=== PATIENT | female | born 1955 | race Caucasian/White ===

== ENCOUNTER 2022-04-08 09:46 | Outpatient (CLI) | payer MEDICARE | END 2022-04-08 09:47 | disposition home or self-care (01) | LOC: BICMAMMO 09:46 | PROVIDERS: ATTEND Family Medicine | DX: N63.10 Unspecified lump in the right breast, unspecified quadrant (principal); N60.02 Solitary cyst of left breast | CPT/HCPCS: 76642; 77066; G0279 ==

== ENCOUNTER 2023-07-08 07:32 | Day surgery (SDC) | payer MEDICARE ==
[2023-07-07 13:24] VITALS: BMI 18.6
[2023-07-08] MEDS ORDERED: Vancomycin 1 GM/200 ML (FROZEN) BAG ONE (09:48)
[2023-07-08] MEDS ORDERED: LevoFLOXacin D5W 500 mg (100 mL) BAG ONE (09:48)
[2023-07-08 10:23] LABS: #Basophils 0.1 thou/uL (0.0-0.2); #Monocytes 0.5 thou/uL (0.11-0.59); #Neutrophils 5.8 thou/uL (1.40-6.50); %Basophils 0.6 % (0.0-1.0); %Eosinophils 0.1 % (0.0-10.0); %Lymphocytes 19.7 % (21.0-51.0); %Monocytes 6.3 % (0.0-10.0); %Neutrophils 72.9 % (42.0-75.0); Hematocrit 37.1 % (36.0-47.0); Hemoglobin 11.7 g/dL (12.0-16.0); Mean Corpuscular HGB CONC 31.5 g/dL (32.0-36.0); Mean Corpuscular Hemoglobin 29.3 pg (27.0-31.0); Mean Corpuscular Volume 92.8 fl (78.0-98.0); Mean Platelet Volume 8.9 fL (7.4-10.4); Platelet Count 304 10x3/uL (130-400); RBC Distribution Width 16.8 % (11.5-14.5); White Blood Cell (WBC) Count 7.9 10x3/uL (4.8-10.8)
[2023-07-08 10:37] LABS: Prothrombin Time 13.5 sec (12.0-14.7)
[2023-07-08 10:38] LABS: PTT 25.6 sec (22.9-36.1)
[2023-07-08 10:44] LABS: Anion Gap 16 mmol/L (10-20); BUN (Urea Nitrogen) 10 mg/dL (9.8-20.1); Calc. Creatinine Clearance 46 mL/min (70-130); Calcium 9.1 mg/dL (7.8-10.44); Carbon Dioxide 25 mmol/L (23-31); Chloride 106 mmol/L (98-107); Estimated GFR 74; Glucose 84 mg/dL (80-115); Potassium 3.8 mmol/L (3.5-5.1); Sodium 143 mmol/L (136-145)
[2023-07-08] MEDS ORDERED: Midazolam HCl 2 mg/2 ml Vial ONE (10:56)
[2023-07-08] MEDS ORDERED: fentaNYL PF 100 MCG/2 ML SYRINGE ONE (11:44)
[2023-07-08] MEDS ORDERED: Rocuronium Bromide 10 MG/ML (10ML VIAL) ONE (11:44)
[2023-07-08] MEDS ORDERED: Lidocaine 1% PF 5 ML VIAL ONE (11:44)
[2023-07-08] MEDS ORDERED: Ondansetron PF 4 MG/2 ML Vial ONE ×2 (11:44→14:25)
[2023-07-08] MEDS ORDERED: Dexamethasone 4 mg/ml Vial ONE (11:44)
[2023-07-08] MEDS ORDERED: PROPOFOL 20 ML ONE (11:48)
[2023-07-08] MEDS ORDERED: Iopamidol 45 ML ONE (11:49)
[2023-07-08] MEDS ORDERED: ePHEDrine Sulfate 50 MG/10 ML VIAL ONE (12:37)
[2023-07-08] MEDS ORDERED: SUGAMMADEX SODIUM 200 MG/2 ML VIAL ONE (14:02)
[2023-07-08] MEDS ORDERED: Oxybutynin 5 MG TAB ONE (17:26)
[2023-07-08] MEDS ORDERED: Phenazopyridine HCl 100 MG TAB ONE (17:26)
== END 2023-07-08 17:45 | disposition home or self-care (01) ==
LOC: SDC 07:32
PROVIDERS: ATTEND Urology
PROC: 0TC78ZZ Extirpation of Matter from Left Ureter, Via Natural or Artificial Opening Endoscopic (ICD-10-PCS; principal; 2023-07-08)
PROC: 0T778DZ Dilation of Left Ureter with Intraluminal Device, Via Natural or Artificial Opening Endoscopic (ICD-10-PCS; 2023-07-08)
DX: N13.2 Hydronephrosis with renal and ureteral calculous obstruction (principal); Z88.0 Allergy status to penicillin; Z88.2 Allergy status to sulfonamides; Z88.1 Allergy status to other antibiotic agents; N12 Tubulo-interstitial nephritis, not specified as acute or chronic; Z98.890 Other specified postprocedural states; Z79.899 Other long term (current) drug therapy; Z79.82 Long term (current) use of aspirin
CPT/HCPCS: 52356; 74018; 74420; 80048; 82365; 85025; 85610; 85730; 93005; C1747; C1769; C2617; J3370; 88300; 93010; J1100; J1956; J2250; J2405; J2704; Q9967

== ENCOUNTER 2023-07-16 11:09 | Outpatient (CLI) | payer MEDICARE ==
[2023-07-16 13:26] LABS: Hematocrit 33.1 % (34.9-44.5); Hemoglobin 10.8 g/dL (12.0-15.5); Mean Corpuscular HGB CONC 32.6 g/dL (32.0-36.0); Mean Corpuscular Hemoglobin 29.1 pg (27.0-33.0); Mean Corpuscular Volume 89.2 fl (81.6-98.3); Mean Platelet Volume 9.2 fl (7.4-10.4); Platelet Count 371 10x3/uL (150-450); RBC Distribution Width 17.1 % (11.5-14.5); Red Blood Cell (RBC) Count 3.71 10x6/uL (3.90-5.03); White Blood Cell (WBC) Count 8.3 10x3/uL (3.5-10.5)
[2023-07-16 13:40] LABS: Anion Gap 14 mmol/L (10-20); BUN (Urea Nitrogen) 14 mg/dL (9.8-20.1); Calc. Creatinine Clearance 0 mL/min (70-130); Calcium 8.6 mg/dL (7.8-10.44); Carbon Dioxide 24 mmol/L (23-31); Chloride 106 mmol/L (98-107); Estimated GFR 83; Glucose 96 mg/dL (80-115); Potassium 3.6 mmol/L (3.5-5.1); Sodium 140 mmol/L (136-145)
[2023-07-16 13:53] LABS: PTT 25.6 sec (22.0-33.0); Prothrombin Time 10.7 sec (9.5-12.1)
== END 2023-07-16 11:10 | disposition home or self-care (01) ==
LOC: LABBT 11:09
PROVIDERS: ATTEND Urology
DX: Z01.818 Encounter for other preprocedural examination (principal); N20.0 Calculus of kidney; R35.0 Frequency of micturition; N94.9 Unspecified condition associated with female genital organs and menstrual cycle; C90.00 Multiple myeloma not having achieved remission; Z98.890 Other specified postprocedural states
CPT/HCPCS: 71046; 80048; 85027; 85610; 85730; 86850; 86900; 86901

== ENCOUNTER 2023-07-22 07:40 | Day surgery (SDC) | payer MEDICARE ==
[2023-07-16 13:26] LABS: Hematocrit 33.1 % (34.9-44.5); Hemoglobin 10.8 g/dL (12.0-15.5); Mean Corpuscular HGB CONC 32.6 g/dL (32.0-36.0); Mean Corpuscular Hemoglobin 29.1 pg (27.0-33.0); Mean Corpuscular Volume 89.2 fl (81.6-98.3); Mean Platelet Volume 9.2 fl (7.4-10.4); Platelet Count 371 10x3/uL (150-450); RBC Distribution Width 17.1 % (11.5-14.5); Red Blood Cell (RBC) Count 3.71 10x6/uL (3.90-5.03); White Blood Cell (WBC) Count 8.3 10x3/uL (3.5-10.5)
[2023-07-16 13:40] LABS: Anion Gap 14 mmol/L (10-20); BUN (Urea Nitrogen) 14 mg/dL (9.8-20.1); Calc. Creatinine Clearance 0 mL/min (70-130); Calcium 8.6 mg/dL (7.8-10.44); Carbon Dioxide 24 mmol/L (23-31); Chloride 106 mmol/L (98-107); Estimated GFR 83; Glucose 96 mg/dL (80-115); Potassium 3.6 mmol/L (3.5-5.1); Sodium 140 mmol/L (136-145)
[2023-07-16 13:53] LABS: PTT 25.6 sec (22.0-33.0); Prothrombin Time 10.7 sec (9.5-12.1)
[2023-07-22] MEDS ORDERED: Vancomycin 1 GM/200 ML (FROZEN) BAG ONE (09:13)
[2023-07-22] MEDS ORDERED: LevoFLOXacin D5W 500 mg (100 mL) BAG ONE (09:13)
[2023-07-22] MEDS ORDERED: Iopamidol 30 ML ONE (11:24)
[2023-07-22] MEDS ORDERED: fentaNYL PF 100 MCG/2 ML SYRINGE ONE (11:30)
[2023-07-22] MEDS ORDERED: Rocuronium Bromide 10 MG/ML (10ML VIAL) ONE (11:30)
[2023-07-22] MEDS ORDERED: Lidocaine 1% PF 5 ML VIAL ONE (11:30)
[2023-07-22] MEDS ORDERED: Dexamethasone 4 mg/ml Vial ONE (11:30)
[2023-07-22] MEDS ORDERED: Ondansetron PF 4 MG/2 ML Vial ONE ×2 (11:30→13:28)
[2023-07-22] MEDS ORDERED: PROPOFOL 20 ML ONE (11:30)
[2023-07-22] MEDS ORDERED: PHENYLEPHRINE-NS 100 MCG/ML 10 ML SYRINGE ONE (12:09)
[2023-07-22] MEDS ORDERED: ePHEDrine Sulfate 50 MG/10 ML VIAL ONE (12:31)
[2023-07-22] MEDS ORDERED: NEOSTIGMINE 3 MG/3 ML SYR 3 MG/3 ML SYRINGE ONE (12:55)
[2023-07-22] MEDS ORDERED: Glycopyrrolate 0.2 MG/ML 5 ML SYRINGE ONE (12:55)
[2023-07-22] MEDS ORDERED: Phenazopyridine HCl 100 MG TAB ONE ×2 (13:42→15:17)
[2023-07-22] MEDS ORDERED: Oxybutynin 5 MG TAB ONE (13:42)
== END 2023-07-22 17:40 | disposition home or self-care (01) ==
LOC: SDC 07:40
PROVIDERS: ATTEND Urology
PROC: 0TC43ZZ Extirpation of Matter from Left Kidney Pelvis, Percutaneous Approach (ICD-10-PCS; principal; 2023-07-22)
DX: N20.2 Calculus of kidney with calculus of ureter (principal); N94.9 Unspecified condition associated with female genital organs and menstrual cycle; C90.00 Multiple myeloma not having achieved remission; R35.0 Frequency of micturition; I73.00 Raynaud's syndrome without gangrene; M81.0 Age-related osteoporosis without current pathological fracture; Z79.890 Hormone replacement therapy; Z98.890 Other specified postprocedural states; Z88.0 Allergy status to penicillin; Z88.1 Allergy status to other antibiotic agents; Z79.899 Other long term (current) drug therapy
CPT/HCPCS: 50080; 74018; 80048; 82365; 85027; 85610; 85730; 86850; 86900; 86901; A4314; C1747; C1769; J3370; 88300; J1100; J1956; J2405; J2704; Q9967

== ENCOUNTER 2023-08-10 13:29 | Outpatient (CLI) | payer MEDICARE ==
[2023-08-10 15:11] LABS: Hematocrit 33.9 % (34.9-44.5); Hemoglobin 11.4 g/dL (12.0-15.5); Mean Corpuscular HGB CONC 33.6 g/dL (32.0-36.0); Mean Corpuscular Hemoglobin 30.2 pg (27.0-33.0); Mean Corpuscular Volume 89.9 fl (81.6-98.3); Mean Platelet Volume 9.9 fl (7.4-10.4); PTT 25.9 sec (22.0-33.0); Platelet Count 275 10x3/uL (150-450); Prothrombin Time 10.4 sec (9.5-12.1); RBC Distribution Width 17.1 % (11.5-14.5); Red Blood Cell (RBC) Count 3.77 10x6/uL (3.90-5.03); White Blood Cell (WBC) Count 6.6 10x3/uL (3.5-10.5)
[2023-08-10 15:15] LABS: Anion Gap 11 mmol/L (10-20); BUN (Urea Nitrogen) 14 mg/dL (9.8-20.1); Calc. Creatinine Clearance 0 mL/min (70-130); Calcium 8.9 mg/dL (7.8-10.44); Carbon Dioxide 28 mmol/L (23-31); Chloride 105 mmol/L (98-107); Estimated GFR 60; Glucose 92 mg/dL (80-115); Potassium 3.5 mmol/L (3.5-5.1); Sodium 140 mmol/L (136-145)
== END 2023-08-10 13:30 | disposition home or self-care (01) ==
LOC: LABBT 13:29
PROVIDERS: ATTEND Urology
DX: Z01.818 Encounter for other preprocedural examination (principal); C90.00 Multiple myeloma not having achieved remission; N20.0 Calculus of kidney; R35.0 Frequency of micturition; N94.9 Unspecified condition associated with female genital organs and menstrual cycle; Z98.890 Other specified postprocedural states
CPT/HCPCS: 80048; 85027; 85610; 85730; 93005; 93010

== ENCOUNTER 2023-08-19 08:43 | Day surgery (SDC) | payer MEDICARE ==
[2023-08-10 14:11] VITALS: BMI 20.1
[2023-08-19] MEDS ORDERED: Fluconazole In NaCl,Iso-Osm 200 MG in Premix 1 BAG IVPB SCH (09:45)
[2023-08-19] MEDS ORDERED: LevoFLOXacin D5W 500 mg (100 mL) BAG ONE (10:22)
[2023-08-19] MEDS ORDERED: PROPOFOL 20 ML ONE (10:26)
[2023-08-19] MEDS ORDERED: Lidocaine 2% PF 5 ML VIAL ONE (10:26)
[2023-08-19] MEDS ORDERED: fentaNYL PF 100 MCG/2 ML SYRINGE ONE (10:26)
[2023-08-19] MEDS ORDERED: Rocuronium Bromide 10 MG/ML (10ML VIAL) ONE (10:26)
[2023-08-19] MEDS ORDERED: Iopamidol 15 ML ONE (11:01)
[2023-08-19] MEDS ORDERED: PHENYLEPHRINE-NS 100 MCG/ML 10 ML SYRINGE ONE (11:59)
[2023-08-19] MEDS ORDERED: Ondansetron PF 4 MG/2 ML Vial ONE (12:07)
[2023-08-19] MEDS ORDERED: SUGAMMADEX SODIUM 200 MG/2 ML VIAL ONE (12:07)
[2023-08-19] MEDS ORDERED: Phenazopyridine HCl 100 MG TAB ONE (13:18)
[2023-08-19] MEDS ORDERED: Oxybutynin 5 MG TAB ONE (13:19)
== END 2023-08-19 14:37 | disposition home or self-care (01) ==
LOC: SDC 08:43
PROVIDERS: ATTEND Urology
PROC: 0T778DZ Dilation of Left Ureter with Intraluminal Device, Via Natural or Artificial Opening Endoscopic (ICD-10-PCS; principal; 2023-08-19)
PROC: 0TC48ZZ Extirpation of Matter from Left Kidney Pelvis, Via Natural or Artificial Opening Endoscopic (ICD-10-PCS; 2023-08-19)
DX: N20.0 Calculus of kidney (principal); K58.9 Irritable bowel syndrome, unspecified; M81.0 Age-related osteoporosis without current pathological fracture; Z90.710 Acquired absence of both cervix and uterus; Z98.890 Other specified postprocedural states; Z88.0 Allergy status to penicillin; Z88.1 Allergy status to other antibiotic agents; Z88.8 Allergy status to other drugs, medicaments and biological substances; Z88.2 Allergy status to sulfonamides; Z79.899 Other long term (current) drug therapy; Z91.038 Other insect allergy status
CPT/HCPCS: 74018; 74420; C1747; C1769; C2617; J1450; J1956; J2001; J2405; J2704; Q9967

== ENCOUNTER 2023-12-03 09:32 | Outpatient (CLI) | payer MEDICARE | END 2023-12-03 09:33 | disposition home or self-care (01) | LOC: SCSMRI 09:32 | PROVIDERS: ATTEND Obstetrics & Gynecology Gynecologic Oncology | DX: R19.00 Intra-abdominal and pelvic swelling, mass and lump, unspecified site (principal); N83.291 Other ovarian cyst, right side | CPT/HCPCS: 72197; 82565 ==

== ENCOUNTER 2024-04-18 09:31 | Outpatient (CLI) | payer MEDICARE | END 2024-04-18 09:32 | disposition home or self-care (01) | LOC: BICMAMMO 09:31 | PROVIDERS: ATTEND Family Medicine | DX: N64.89 Other specified disorders of breast (principal) | CPT/HCPCS: 76642; 77065; G0279 ==